=== PATIENT | female | born 1990 | race Caucasian/White ===

== ENCOUNTER 2021-04-30 12:41 | Outpatient (CLI) | payer MEDICAID, SELFPAY ==
--- NOTE | 2021-04-30 12:59 | XR_ITS ---
WS: [id number] XR elbow RT min 3V* [id number] REASON FOR EXAM: OLECRANON BURSITIS FINDINGS: Joint spaces of the right elbow are intact. No fracture or other focal bone abnormality identified. No soft tissue abnormality. XR/XR elbow RT min 3V* [id number] IMPRESSION: No significant abnormality
== END 2021-04-30 12:42 | disposition home or self-care (01) ==
LOC: RAD 12:55
PROVIDERS: PCP Nurse Practitioner Family; Visit Provider Nurse Practitioner Family
DX: M70.21 Olecranon bursitis, right elbow (principal)
CPT/HCPCS: 73080

== ENCOUNTER → 2021-09-04 13:48 | Outpatient (BNVA) | payer MEDICAID, SELFPAY | PROVIDERS: PCP Nurse Practitioner Family; Referring Provider Nurse Practitioner Family; Visit Provider Orthopaedic Surgery | DX: M25.521 Pain in right elbow (principal) | CPT/HCPCS: 73080 ==